=== PATIENT | male | born 1980 | race African-American/Black ===

== ENCOUNTER 2018-05-24 13:47 | Emergency (ER) | payer OTHER ==
[2018-05-24] MEDS: LIDOCAINE/EPI/TETRACAINE TOPICAL GEL 3 ML. TP (14:38)
[2018-05-24] MEDS: DIPHTH,PERTUSS(ACELL),TET TOX 0.5 ML DISP.SYRIN. VAX IM (14:38)
[2018-05-24] MEDS: LIDOCAINE 1% PF 30 ML VIAL. INJ (15:47)
== END 2018-05-24 15:50 | disposition home or self-care (01) ==
LOC: ER 13:47
DX: S01.511A Laceration without foreign body of lip, initial encounter (principal); S01.81XA Laceration without foreign body of other part of head, initial encounter; F17.200 Nicotine dependence, unspecified, uncomplicated; W22.8XXA Striking against or struck by other objects, initial encounter; Y93.89 Activity, other specified; Y99.8 Other external cause status; Y92.89 Other specified places as the place of occurrence of the external cause
CPT/HCPCS: 12013; 90471; 90715; 99284-25

== ENCOUNTER 2021-06-04 17:12 | Emergency (ER) | payer OTHER ==
[~2021-06-04] VITALS: Ht 165.1 cm; Wt 58.6 kg
[2021-06-04 17:50] VITALS: BP 115/68
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
[2021-06-04] MEDS ORDERED: NAPR-514 PO (18:54)
[2021-06-04] MEDS ORDERED: CYCL10TA2 PO (18:54)
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
== END 2021-06-04 19:00 | disposition home or self-care (01) ==
LOC: ER 17:12
DX: S13.9XXA Sprain of joints and ligaments of unspecified parts of neck, initial encounter (principal); S00.83XA Contusion of other part of head, initial encounter; M54.5 Low back pain; F17.200 Nicotine dependence, unspecified, uncomplicated; V49.59XA Passenger injured in collision with other motor vehicles in traffic accident, initial encounter; Y93.89 Activity, other specified; Y92.488 Other paved roadways as the place of occurrence of the external cause; Y99.8 Other external cause status
CPT/HCPCS: 70450; 72125; 72131; 99285-25

== ENCOUNTER 2022-02-19 16:07 | Emergency (ER) | payer BC, OTHER ==
[~2022-02-19] VITALS: Ht 165.1 cm; Wt 59.1 kg
[~2022-02-19 16:07] MED LIST: CYCL10TA19 PO; NAPR-514 PO
[2022-02-19 16:08] VITALS: BP 122/85
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
--- NOTE | 2022-02-19 17:17 | RAD ---
Exam: XR FOREARM_LEFT 2 VIEWS History: Arm pain Comparison: None. Findings: Osseous mineralization is normal. No acute fracture or dislocaton. No significant degenerative change s. Soft tissues are unremarkable. Impression: 1. No acute osseous abnormality of the left forearm. Electronically signed by: Danial Lee MD (02/19/2022 5:15 PM) [id number]
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
[2022-02-19] MEDS ORDERED: IBUP-1007 PO (17:51)
== END 2022-02-19 18:07 | disposition home or self-care (01) ==
LOC: ER 16:07
DX: S16.1XXA Strain of muscle, fascia and tendon at neck level, initial encounter (principal); S56.912A Strain of unspecified muscles, fascia and tendons at forearm level, left arm, initial encounter; F17.200 Nicotine dependence, unspecified, uncomplicated; W18.39XA Other fall on same level, initial encounter; Y93.89 Activity, other specified; Y92.89 Other specified places as the place of occurrence of the external cause; Y99.8 Other external cause status
CPT/HCPCS: 72125; 73090; 99284-25